=== PATIENT | female | born 1975 | race Caucasian/White ===

== ENCOUNTER 2024-01-30 13:16 | Emergency (ER) | payer OTHER, SELFPAY ==
--- NOTE | ~2024-01-30 | XR_ITS ---
EXAMINATION: XR shoulder LT min 2V DATE: 01/30/2024 13:49 INDICATION: Left shoulder pain after lifting heavy object TECHNIQUE: AP internally and externally rotated, AP oblique externally rotated and transscapular Y vi ews of the left shoulder were obtained. COMPARISON: None FINDINGS: Normal alignment. No fracture.Mild glenohumeral and acromioclavicular osteoarthritis with small infe riorly directed osteophytes at the acromioclavicular joint. At least moderate cervical spondylosis wi th multilevel bilateral moderate to severe facet osteoarthritis. Visualized portion of the lungs are clear. Soft tissues are unremarkable. IMPRESSION: Mild left glenohumeral and acromioclavicular osteoarthritis. No acute osseous abnormality. Reviewed, dictated and finalized at location A. IMPRESSION: Mild left glenohumeral and acromioclavicular osteoarthritis. No acute osseous a bnormality.
--- NOTE | ~2024-01-30 | XR_ITS ---
XR hip LT 2V w AP pelvis DATE: 01/30/2024 13:49 INDICATION: Left hip pain after lifting heavy object 3 days ago TECHNIQUE: AP pelvis. AP and lateral views of left hip. COMPARISON: None FINDINGS: No pelvic fracture or bone destruction. Normal alignment at the pubic symphysis and sacroil iac joints. Hip joint spaces are symmetric and well preserved. No fracture or dislocation, avascular necrosis or bone destruction of the left hip. Mild levoscoliosis of the lumbar spine. IMPRESSION: No pelvic or left hip fracture or dislocation Reviewed, dictated and finalized at location J.
--- NOTE | ~2024-01-30 | XR_ITS ---
EXAMINATION: XR lumbar spine 2-3V DATE: 01/30/2024 13:49 INDICATION: Low back pain after lifting a heavy object TECHNIQUE: Anteroposterior and lateral views of the lumbar spine, and cone-down lateral view of the l umbosacral junction were obtained. COMPARISON: CT abdomen pelvis dated 08/17/2014 FINDINGS: 6 degrees lumbar levocurvature. 3 mm retrolisthesis L5 on S1. Vertebral body and disc heights are nor mal. Multilevel mild lumbar facet osteoarthritis but appreciated on prior CT. Mild bilateral sacroili ac osteoarthritis. A few small calcifications projecting over the left kidney likely representing rosa al stones the largest measuring 3 mm. IMPRESSION: 1. Mild lumbar levocurvature with multilevel mild facet osteoarthritis. 2. Left nephrolithiasis. Reviewed, dictated and finalized at location A.
[2024-01-30 13:18] VITALS: BP 150/103; PULSE 69; RESP 20; TEMP 36.3; O2SAT 99
--- NOTE | 2024-01-30 13:26 | ED.EXTPRO ---
HPI - Extremity Problem General Chief complaint: Extremity Problem,Nontraumatic Stated complaint: hip and shoulder pain Time Seen by Provider: 01/30/24 13:24 Source: patient Mode of arrival: ambulatory Limitations: no limitations History of Present Illness HPI Narrative: patient works at [employer] with a lot of lifting. Three days ago was lifting a heavy stuff, felt a pop at the left shoulder and left hip which going across lumbar area. Three days ago. Patient did not take any anti-inflammatory or Tylenol or until now. History of hypertension, rheumatoid arthritis on methotrexate injection once a week Patient drove herself to the emergency room Related Data Home Medications Medication Instructions Recorded Confirmed amitriptyline 10 mg tablet 10 mg PO BID 01/30/24 01/30/24 amlodipine 5 mg tablet 5 mg PO DAILY 01/30/24 01/30/24 escitalopram oxalate 10 mg tablet 10 mg PO DAILY 01/30/24 01/30/24 lisinopril 20 mg tablet 20 mg PO DAILY 01/30/24 01/30/24 methotrexate sodium 25 mg/mL See Rx Instructions .Route .COMPLEX 01/30/24 01/30/24 injection solution Allergies Allergy/AdvReac Type Severity Reaction Status Date / Time codeine Allergy Unknown vomiting, Verified 04/15/20 11:38 bloody nose Review of Systems Review of Systems: All systems reviewed & are unremarkable except as noted in HPI and below PMFSH Social History Social History Smoking status: Former smoker Smoking end date: 06/14/03 Alcohol intake: current Exam Narrative: General appearance: Well-developed, well-nourished Skin: Normal color Head: Normocephalic, nontraumatic Eyes: Clear conjunctiva ENT: Oropharynx normal, ears normal, nose normal Neck: Supple, nontender Chest and respiratory: Airway patent, no respiratory distress, no accessory muscle use Heart: Regular rate/rhythm Abdomen: Soft, nontender, no organomegaly, quiet bowel sounds Vascular: Normal peripheral pulses, normal capillary refill. Musculoskeletal: slight diffuse tenderness left upper back and left shoulder, no deformity, slight limited range of motion because of pain. Same for the left hip and slight diffuse tenderness across lumbar area, no bruises, no swelling. Neurologic: Alert and oriented ?3, [employer] is normal as tested, no gross motor deficit Course Vital Signs Vital signs: Vital Signs Temperature 36.3 C L 01/30/24 13:18 Pulse Rate 69 01/30/24 13:18 Respiratory Rate 20 01/30/24 13:18 Blood Pressure 150/103 H 01/30/24 13:18 Pulse Oximetry 99 01/30/24 13:18 Oxygen Delivery Room Air 01/30/24 13:18 Temperature 36.3 C L 01/30/24 14:03 Pulse Rate 72 01/30/24 14:03 Respiratory Rate 18 01/30/24 14:03 Blood Pressure 148/89 H 01/30/24 14:03 Pulse Oximetry 100 01/30/24 14:03 Oxygen Delivery Room Air 01/30/24 14:03 MDM - Extremity (Nontraumatic) MDM Narrative Medical decision making narrative: lifting heavy stuff, Physical examination showed tenderness left shoulder left hip and lumbar area Differential diagnosis include musculoskeletal strain/ sprain, less likely vertebral compression fracture. X-ray of the left shoulder, left hip and lumbar spine showed no acute abnormalities Patient will be discharged on anti-inflammatory and muscle relaxant, the pt was discharged to home.the pt,s condition upon discharge was fair,education was provided to the pt in reference to the final impression,discharge study results,treatment,prognosis and need for follow up . Imaging Data Radiologist's impression: Impressions Shoulder X-Ray 01/30/24 13:58 IMPRESSION: Mild left glenohumeral and acr
[2024-01-30] MEDS: ACETAMINOPHEN 500 MG TABLET 1000 MG PO (13:55)
[2024-01-30] MEDS: IBUPROFEN 400 MG TABLET 800 MG PO (13:56)
[2024-01-30 14:03] VITALS: BP 148/89; PULSE 72; RESP 18; TEMP 36.3; O2SAT 100
== END 2024-01-30 14:03 | disposition home or self-care (01) ==
PROVIDERS: Emergency Provider Emergency Medicine
DX: M25.552 Pain in left hip (principal); M25.512 Pain in left shoulder; I10 Essential (primary) hypertension; M06.9 Rheumatoid arthritis, unspecified; Z79.899 Other long term (current) drug therapy; X50.0XXA Overexertion from strenuous movement or load, initial encounter; Z87.891 Personal history of nicotine dependence
CPT/HCPCS: 72100; 73030; 73502; 99284; A9270